=== PATIENT | female | born 1960 ===

== ENCOUNTER 2021-08-20 08:25 | Outpatient (CLI) | payer OTHER | END 2021-08-20 08:44 | disposition home or self-care (01) | LOC: TOM 08:25 | PROVIDERS: ATTEND Specialist | DX: K42.9 Umbilical hernia without obstruction or gangrene (principal); K57.90 Diverticulosis of intestine, part unspecified, without perforation or abscess without bleeding; I51.7 Cardiomegaly; R19.00 Intra-abdominal and pelvic swelling, mass and lump, unspecified site ==